=== PATIENT | female | born 1990 | race American Indian/Alaskan Native ===

== ENCOUNTER 2016-11-21 15:51 | Emergency (ER) | payer SELFPAY ==
[2016-11-21 16:28] VITALS: BP 127/82
[2016-11-21] MEDS ORDERED: DECADRON IM ONE (18:37)
--- NOTE | 2016-11-21 18:41 | Emergency Department Report ---
ED Rash HPI - [facility] Chief Complaint: Skin Rash Stated Complaint: RASH ON CHEST AREA Time Seen by Provider: 11/21/16 18:36 Duration: 3 Days Location: Chest, Back, Other (under breats) Suspected Cause: Unknown Rash Symptoms: Yes Itching, No Facial Swelling, No Tongue/Oral Swelling, No Breathing Difficulties, No Choking Sensation, No Wheezing/Dyspnea, No Peeling, No Blistering, No Fever Severity: mild ED Review of Systems ROS: Stated complaint: RASH ON CHEST AREA Other details as noted in HPI ED Past Medical Hx - Past Medical History Previous Medical History?: No - Surgical History Past Surgical History?: Yes Additional Surgical History: c section 2006 - Social History Smoking Status: Current Every Day Smoker Substance Use Type: None - Medications Home Medications: Home Medications Medication Instructions Recorded Confirmed Last Taken Type methylPREDNISolone [Medrol] 4 mg PO DAILY #1 tab.ds.pk 11/21/16 Unknown Rx Rash Exam - Exam General: Vital signs noted. No distress. Alert and acting appropriately. HEENT: No Periorbital Edema, No Conjuctival Injection, No Chemosis, No Perioral Edema, No Tongue Edema, No Uvular Edema, No Compromised Airway, No Drooling Lungs: Yes Good Air Exchange, No Wheezes, No Ronchi, No Stridor, No Cough, No Labored Respirations, No Retractions, No Use of Accessory Muscles, No Other Abnormal Lung Sounds Heart: Yes Regular, No Murmur Skin: Yes Urticarial Rash (irritant appearing as like a heat rash would cause. started under breasts. on chest and back. no fever. no other s/s. no family with. she thinks it might be her detergent. she also says home is hot. and she is requesting a work note. vss. nad), Yes Erythema, No Maculopapular Rash, No Morbilliform rash, No Bulla(e), No Excoriations, No Weeping, No Tenderness, No Edema, No Encrustations Other: Positive: Abdomen Normal ED Course Vital Signs 11/21/16 16:24 Temperature 98.7 F Pulse Rate 82 Respiratory 16 Rate Blood Pressure 127/82 Blood Pressure 127/82 [Left] O2 Sat by Pulse 100 Oximetry - Reevaluation(s) Reevaluation #1: 11/21/16 18:41 medicated vss abc intact no wheezing no sob no cp simple rash dc home w outpt poc Critical care attestation.: If time is entered above; I have spent that time in minutes in the direct care of this critically ill patient, excluding procedure time. ED Disposition Clinical Impression: Rash Disposition: DC-01 TO HOME OR SELFCARE Is pt being admited?: No Does the pt Need Aspirin: No Condition: Stable Instructions: Acute Rash (ED) Additional Instructions: keep cool no new products evaluate your home products to eliminate source of irritant benadyl over the counter orally for itching follow up PCP or derm if persists. Referrals: PRIMARY CARE, [Primary Care Provider] - 3-5 Days REYNA SCOTT MD [Referring] - 3-5 Days FLACO ESTRELLA MD [Staff Physician] - 3-5 Days FELICIA HAMMOND MD [Staff Physician] - 3-5 Days Forms: Work/School Release Form(ED) Time of Disposition: 18:40
== END 2016-11-21 18:57 | disposition home or self-care (01) ==
LOC: ED 15:51
DX: R21 Rash and other nonspecific skin eruption (principal); F17.200 Nicotine dependence, unspecified, uncomplicated
CPT/HCPCS: 96372; 99281; J1100

== ENCOUNTER 2017-04-04 20:10 | Emergency (ER) | payer OTHER ==
[2017-04-04 20:51] VITALS: BP 131/93
[2017-04-04] MEDS ORDERED: TETRACAINE 0.5% OU PRN (21:09)
[2017-04-04] MEDS ORDERED: FUL-GLO OP ONE (21:09)
--- NOTE | 2017-04-04 22:17 | Emergency Department Report ---
ED Eye Problem HPI - General Chief complaint: Eye Problems Stated complaint: EYE PAIN Time Seen by Provider: 04/04/17 21:09 Source: patient Mode of arrival: Ambulatory Limitations: No Limitations - History of Present Illness Initial comments: This is a 26-year-old female nontoxic, well nourished in appearance, no acute signs of distress presents to the ED with c/o of right eye pain, redness, and drainage x2 days. She believes got something in her eye and rubbed her eye. Patient denies any visual changes, headache, nausea, vomiting fever, chills, chest pain, shortness of breath, numbness or tingling. Denies any allergies or past medical history. chief complaint: eye pain, eye redness -: days(s) (2) Onset Description: gradual Location: right eye Place: home If Injury: none Eye Symptoms: burning, redness, itching, discharge Severity: mild Severity scale (0 -10): 8 If Pain, Quality: burning, aching Consistency: constant Associated Symptoms: none. denies: headache, neck pain, nausea/vomiting, cough , rhinorrhea, fever, shortness of breath Treatments Prior to Arrival: none - Related Data Previous Rx's Medication Instructions Recorded Last Taken Type methylPREDNISolone [Medrol] 4 mg PO DAILY #1 tab.ds.pk 11/21/16 Unknown Rx Ciprofloxacin 0.3% (Nf) 2 drops OD BID 5 Days drops 04/04/17 Unknown Rx [Ciprofloxacin OPTH] Allergies Allergy/AdvReac Type Severity Reaction Status Date / Time No Known Allergies Allergy Unverified 11/21/16 16:28 ED Review of Systems ROS: Stated complaint: EYE PAIN Other details as noted in HPI Constitutional: denies: chills, fever Eyes: eye pain, eye discharge. denies: vision change ENT: denies: ear pain, throat pain Respiratory: denies: cough, shortness of breath, wheezing Cardiovascular: denies: chest pain, palpitations Endocrine: no symptoms reported Gastrointestinal: denies: abdominal pain, nausea, diarrhea Genitourinary: denies: urgency, dysuria, discharge Musculoskeletal: denies: back pain, joint swelling, arthralgia Skin: denies: rash, lesions Neurological: denies: headache, weakness, paresthesias Psychiatric: denies: anxiety, depression Hematological/Lymphatic: denies: easy bleeding, easy bruising ED Past Medical Hx - Past Medical History Previous Medical History?: No - Surgical History Past Surgical History?: No Additional Surgical History: c section 2007 - Social History Smoking Status: Current Every Day Smoker Substance Use Type: None - Medications Home Medications: Home Medications Medication Instructions Recorded Confirmed Last Taken Type methylPREDNISolone [Medrol] 4 mg PO DAILY #1 tab.ds.pk 11/21/16 Unknown Rx Ciprofloxacin 0.3% (Nf) 2 drops OD BID 5 Days drops 04/04/17 Unknown Rx [Ciprofloxacin OPTH] ED Physical Exam - General Limitations: No Limitations General appearance: alert, in no apparent distress - Head Head exam: Present: atraumatic, normocephalic - Eye Eye exam: Present: normal appearance, PERRL, EOMI. Absent: scleral icterus, conjunctival injection, nystagmus, periorbital swelling, periorbital tenderness Pupils: Present: normal accommodation - Expanded Eye Exam Expanded Eyelids: Normal Inspection: Right Pupils: Regular, Round: Right, Reactive: Right Sclera/Conjunctival: Normal Inspection: Right (with erythema, watery) Anterior chamber: Normal Inspection: Right Visual acuity (R) = 20/: 20 Visual acuity (L) = 20/: 40 With correction: No IOP (R) in mmH IOP measured with: Tonopen - ENT ENT exam: Present: normal exam, normal orophraynx, mucous membranes moist, TM's normal bilaterally, normal external ear exam - Neck Neck exam: Present: normal inspection, full ROM. Absent: tenderness, meningismus, lymphadenopathy, thyromegaly - Respiratory Respiratory exam: Present: normal lung sounds bilaterally. Absent: respiratory distress, wheezes, rales, rhonchi, stridor, chest wall tenderness, accessory muscle use, decreased breath sounds, prolonged expiratory - Cardiovascular Cardiovascular Exam: Present: regular rate, normal rhythm, normal heart sounds. Absent: irregular rhythm, systolic murmur, diastolic murmur, rubs, gallop - GI/Abdominal GI/Abdominal exam: Present: soft, normal bowel sounds. Absent: distended, tenderness, guarding, rebound, rigid, diminished bowel sounds - Rectal Rectal exam: Present: deferred - Extremities Exam Extremities exam: Present: normal inspection, full ROM, normal capillary refill. Absent: tenderness, pedal edema, joint swelling, calf tenderness - Back Exam Back exam: Present: normal inspection, full ROM. Absent: tenderness, CVA tenderness (R), CVA tenderness (L), muscle spasm, paraspinal tenderness, vertebral tenderness, rash noted - Neurological Exam Neurological exam: Present: alert, oriented X3, CN II-XII intact, normal gait, reflexes normal - Psychiatric Psychiatric exam: Present: normal affect, normal mood - Skin Skin exam: Present: warm, dry, intact, normal color. Absent: rash - Other Other exam information: Under Lynch lamp, I used fluorescein and tetracaine to examine cornea for corneal abrasion or foreign body. There is a 0.5 cm ulcer to the lateral right iris. Not covering the pupil. ED Course Vital Signs 04/04/17 20:48 Temperature 99 F Pulse Rate 98 H Respiratory 18 Rate Blood Pressure 131/93 O2 Sat by Pulse 100 Oximetry - Reevaluation(s) Reevaluation #1: 04/04/17 22:20 Patient is speaking in full sentences with no signs of distress noted. - Consultations Consultation #1: 04/04/17 22:20 Dr. Walls also has been consulted on patient history, physical exam and assessment patient himself and agrees to plan of care discharged with follow-up with ophthalmology in 24 hours. ED Medical Decision Making - Medical Decision Making This is a 26-year-old female that presents with right corneal ulcer. Patient is stable and was examined by me. Socrates Wills. Lynch lamp has been perform. Dr. Walls has exam patient and agrees to plan of care discharge. Patient received ciprofloxacin optic drops at discharge. Patient was instructed Follow- up with a ophthalmology in 24 hours or if symptoms worsen and continue return to emergency room as soon as possible. At time time of discharge, the patient does not seem toxic or ill in appearance. No acute signs of distress noted. Patient agrees to discharge treatment plan of care. No further questions noted by the patient. Critical care attestation.: If time is entered above; I have spent that time in minutes in the direct care of this critically ill patient, excluding procedure time. ED Disposition Clinical Impression: Corneal ulcer of right eye Disposition: DC-01 TO HOME OR SELFCARE Is pt being admited?: No Does the pt Need Aspirin: No Condition: Stable Instructions: Corneal Ulcer (ED), Ciprofloxacin (Into the eye) Additional Instructions: Follow-up with a ophthalmology in 24 hours or if symptoms worsen and continue return to emergency room as soon as possible. Prescriptions: Ciprofloxacin 0.3% (Nf) [Ciprofloxacin OPTH] 2 drops OD BID 5 Days drops Referrals: PRIMARY CARE, [Primary Care Provider] - 3-5 Days [facility]Note 3] [Outside] - 3-5 Days [facility] [Outside] - 3-5 Days KISHAN LAWRENCE MD [Staff Physician] - 24 Hours ALONDRA HERNANDEZ MD [Staff Physician] - 24 Hours Forms: Work/School Release Form(ED)
== END 2017-04-04 22:40 | disposition home or self-care (01) ==
LOC: ED 20:10
DX: H16.001 Unspecified corneal ulcer, right eye (principal); F17.200 Nicotine dependence, unspecified, uncomplicated
CPT/HCPCS: 99283

== ENCOUNTER 2017-12-29 07:50 | Emergency (ER) | payer SELFPAY ==
[2017-12-29 07:56] VITALS: BP 121/84
[2017-12-29] MEDS ORDERED: MOTRIN PO ONE (08:29)
[2017-12-29] MEDS ORDERED: LIDOCAINE VISCOUS 2% PO ONE (08:29)
--- NOTE | 2017-12-29 08:36 | Emergency Department Report ---
ED ENT HPI - General Chief complaint: Sore Throat Stated complaint: THROAT SORE POSS FEVER Time Seen by Provider: 12/29/17 08:23 Source: patient Mode of arrival: Ambulatory Limitations: No Limitations - History of Present Illness Initial comments: This is a 27-year-old female nontoxic, well nourished in appearance, no acute signs of distress presents to the ED with c/o of sore throat. Patient describes sore throat as swallowing razer blades. Patient denies any fever, chills, headache, stiff neck, nausea, vomiting, chest pain, shortness of breath, numbness or tingling. Patient denies any drooling or hoarseness. Patient denies any allergies or significant past medical history. MD complaint: sore throat -: days(s) (2) Location: throat Severity: mild Severity scale (0 -10): 8 Quality: aching Consistency: constant Improves with: none Worsens with: swallowing Associated Symptoms: pain with swallowing, sore throat. denies: fever, cough, gum swelling, toothache, tinnitus, hearing loss, discharge from ear, rhinorrhea - Related Data Previous Rx's Medication Instructions Recorded Last Taken Type methylPREDNISolone [Medrol] 4 mg PO DAILY #1 tab.ds.pk 11/21/16 Unknown Rx Ciprofloxacin 0.3% (Nf) 2 drops OD BID 5 Days drops 04/04/17 Unknown Rx [Ciprofloxacin OPTH] Amoxicillin/K Clav Tab [Augmentin 1 tab PO Q12HR #20 tab 12/29/17 Unknown Rx 875 mg] Ibuprofen [Motrin] 600 mg PO Q8H PRN #30 tablet 12/29/17 Unknown Rx Nystas/Diphen/Xyl Visc/Mylanta 15 ml MM Q6H PRN 5 Days ml 12/29/17 Unknown Rx [Magic Mouthwash] Allergies Allergy/AdvReac Type Severity Reaction Status Date / Time No Known Allergies Allergy Verified 12/29/17 07:54 ED Dental HPI - General Chief complaint: Sore Throat Stated complaint: THROAT SORE POSS FEVER Time Seen by Provider: 12/29/17 08:23 Source: patient Mode of arrival: Ambulatory Limitations: No Limitations - Related Data Previous Rx's Medication Instructions Recorded Last Taken Type methylPREDNISolone [Medrol] 4 mg PO DAILY #1 tab.ds.pk 11/21/16 Unknown Rx Ciprofloxacin 0.3% (Nf) 2 drops OD BID 5 Days drops 04/04/17 Unknown Rx [Ciprofloxacin OPTH] Amoxicillin/K Clav Tab [Augmentin 1 tab PO Q12HR #20 tab 12/29/17 Unknown Rx 875 mg] Ibuprofen [Motrin] 600 mg PO Q8H PRN #30 tablet 12/29/17 Unknown Rx Nystas/Diphen/Xyl Visc/Mylanta 15 ml MM Q6H PRN 5 Days ml 12/29/17 Unknown Rx [Magic Mouthwash] Allergies Allergy/AdvReac Type Severity Reaction Status Date / Time No Known Allergies Allergy Verified 12/29/17 07:54 ED Review of Systems ROS: Stated complaint: THROAT SORE POSS FEVER Other details as noted in HPI Constitutional: denies: chills, fever Eyes: denies: eye pain, eye discharge, vision change ENT: throat pain. denies: ear pain Respiratory: denies: cough, shortness of breath, wheezing Cardiovascular: denies: chest pain, palpitations Endocrine: no symptoms reported Gastrointestinal: denies: abdominal pain, nausea, diarrhea Genitourinary: denies: urgency, dysuria, discharge Musculoskeletal: denies: back pain, joint swelling, arthralgia Skin: denies: rash, lesions Neurological: denies: headache, weakness, paresthesias Psychiatric: denies: anxiety, depression Hematological/Lymphatic: denies: easy bleeding, easy bruising ED Past Medical Hx - Past Medical History Previous Medical History?: No - Surgical History Additional Surgical History: c section 2007 - Social History Smoking Status: Current Every Day Smoker Substance Use Type: None - Medications Home Medications: Home Medications Medication Instructions Recorded Confirmed Last Taken Type methylPREDNISolone [Medrol] 4 mg PO DAILY #1 tab.ds.pk 11/21/16 Unknown Rx Ciprofloxacin 0.3% (Nf) 2 drops OD BID 5 Days drops 04/04/17 Unknown Rx [Ciprofloxacin OPTH] Amoxicillin/K Clav Tab [Augmentin 1 tab PO Q12HR #20 tab 12/29/17 Unknown Rx 875 mg] Ibuprofen [Motrin] 600 mg PO Q8H PRN #30 tablet 12/29/17 Unknown Rx Nystas/Diphen/Xyl Visc/Mylanta 15 ml MM Q6H PRN 5 Days ml 12/29/17 Unknown Rx [Magic Mouthwash] ED Physical Exam - General Limitations: No Limitations General appearance: alert, in no apparent distress - Head Head exam: Present: atraumatic, normocephalic - Eye Eye exam: Present: normal appearance Pupils: Present: normal accommodation - ENT ENT exam: Present: mucous membranes moist, TM's normal bilaterally, normal external ear exam - Expanded ENT Exam Expanded Ear exam: Present: normal external inspection Mouth exam: Present: normal external inspection, tongue normal. Absent: drooling, trismus, muffled voice, tongue elevation, laceration Teeth exam: Present: normal inspection Throat exam: Positive: tonsillar erythema, tonsillomegaly (2+), tonsillar exudate, other (no tonsillar swelling or abscess). Negative: R peritonsillar mass, L peritonsillar mass - Neck Neck exam: Present: normal inspection, full ROM. Absent: tenderness, meningismus, lymphadenopathy - Respiratory Respiratory exam: Present: normal lung sounds bilaterally. Absent: respiratory distress, wheezes, rales, rhonchi, stridor, chest wall tenderness, accessory muscle use, decreased breath sounds, prolonged expiratory - Cardiovascular Cardiovascular Exam: Present: regular rate, normal rhythm, normal heart sounds. Absent: bradycardia, tachycardia, irregular rhythm, systolic murmur, diastolic murmur, rubs, gallop - GI/Abdominal GI/Abdominal exam: Present: soft, normal bowel sounds - Rectal Rectal exam: Present: deferred - Extremities Exam Extremities exam: Present: normal inspection, full ROM, normal capillary refill - Back Exam Back exam: Present: normal inspection, full ROM - Neurological Exam Neurological exam: Present: alert, oriented X3, normal gait - Psychiatric Psychiatric exam: Present: normal affect, normal mood - Skin Skin exam: Present: warm, dry, intact, normal color. Absent: rash ED Course Vital Signs 12/29/17 07:54 Temperature 98.6 F Pulse Rate 90 Respiratory 18 Rate Blood Pressure 121/84 O2 Sat by Pulse 98 Oximetry - Reevaluation(s) Reevaluation #1: 12/29/17 08:34 Patient is speaking in full sentences with no signs of distress noted. Critical care attestation.: If time is entered above; I have spent that time in minutes in the direct care of this critically ill patient, excluding procedure time. ED Disposition Clinical Impression: Tonsillitis with exudate Disposition: - TO HOME OR SELFCARE Is pt being admited?: No Does the pt Need Aspirin: No Condition: Stable Instructions: Tonsillitis (ED) Additional Instructions: Follow-up with a primary care doctor in 3-5 days or if symptoms worsen and continue return to emergency room as soon as possible. Prescriptions: Amoxicillin/K Clav Tab [Augmentin 875 mg] 1 tab PO Q12HR #20 tab Ibuprofen [Motrin] 600 mg PO Q8H PRN #30 tablet PRN Reason: Pain Nystas/Diphen/Xyl Visc/Mylanta [Magic Mouthwash] 15 ml MM Q6H PRN 5 Days ml PRN Reason: Sore Throat Referrals: PRIMARY CAREMD [Primary Care Provider] - 3-5 Days PALOMO HSIEH MD [Staff Physician] - 3-5 Days [facility] [Outside] - 3-5 Days Forms: Work/School Release Form(ED)
[2017-12-29] MEDS ORDERED: NACL 0.9% 1000 ML 1,000 ML ONE (08:53)
== END 2017-12-29 08:45 | disposition home or self-care (01) ==
LOC: ED 07:50
DX: J03.90 Acute tonsillitis, unspecified (principal); F17.200 Nicotine dependence, unspecified, uncomplicated
CPT/HCPCS: 99282; J7030

== ENCOUNTER 2019-04-07 06:09 | Inpatient (IN) | payer MEDICAID ==
[2019-04-07] MEDS ORDERED: LACTATED RINGERS 2,000 ML ONE (07:24)
[2019-04-07 07:35] LABS: Hematocrit 37.6 % (30.3-42.9); Hemoglobin 12.6 gm/dl (10.1-14.3); Mean Corpuscular HGB Conc 33 % (30-34); Mean Corpuscular Volume 73 fl (79-97); Platelet Count 304 K/mm3 (140-440); Red Blood Count 5.13 M/mm3 (3.65-5.03); Red Cell Distribution Width 15.4 % (13.2-15.2)
[2019-04-07 07:39] LABS: Bilirubin,Urine NEG (Negative); Blood,Urine NEG (Negative); Color,Urine Straw (Yellow); Protein,Urine <15 mg/dL mg/dL (Negative); Urobilinogen,Urine < 2.0 mg/dL (<2.0); WBC,Urine < 1.0 /HPF (0.0-6.0)
[2019-04-07 07:46] LABS: Amphetamine Screen,Urine PRESUMPTIVE NEGATIVE; Benzodiazepines Screen,Urine PRESUMPTIVE NEGATIVE; Cannabinoid Screen,Urine PRESUMPTIVE NEGATIVE; Cocaine Screen,Urine PRESUMPTIVE NEGATIVE; Methadone Screen,Urine PRESUMPTIVE NEGATIVE; Opiate Screen,Urine PRESUMPTIVE NEGATIVE
--- NOTE | 2019-04-07 07:54 | History and Physical Report ---
History of Present Illness Date of examination: 04/07/19 Chief complaint: contraction, elevated BP's, uncertain [facility], no records. Attempting to obtain records but no return call for [facility] where she states she had her first US or Dr. Roper where she states she received [facility]. Past History Past Medical History: no pertinent history Past Surgical History: section [employer] History: denies: chlamydia, gonorrhea, hepatitis B, hepatitis C, herpes, HIV, syphilis Social history: smoking - Obstetrical History : 2 Medications and Allergies Allergies Allergy/AdvReac Type Severity Reaction Status Date / Time No Known Allergies Allergy Verified 06/12/18 09:55 Home Medications Medication Instructions Recorded Confirmed Last Taken Type methylPREDNISolone [Medrol] 4 mg PO DAILY #1 tab.ds.pk 11/21/16 Unknown Rx Ciprofloxacin 0.3% (Nf) 2 drops OD BID 5 Days drops 04/04/17 Unknown Rx [Ciprofloxacin OPTH] Amoxicillin/K Clav Tab [Augmentin 1 tab PO Q12HR #20 tab 12/29/17 Unknown Rx 875 mg] Nystas/Diphen/Xyl Visc/Mylanta 15 ml MM Q6H PRN 5 Days ml 12/29/17 Unknown Rx [Magic Mouthwash] Amoxicillin [Amoxicillin TAB] 875 mg PO BID #20 tablet 06/12/18 Unknown Rx Ibuprofen [Motrin 600 MG tab] 600 mg PO Q8H PRN #30 tablet 06/12/18 Unknown Rx predniSONE [Deltasone] 20 mg PO BID #10 tab 06/12/18 Unknown Rx Review of Systems All systems: negative Genitourinary: contractions - Vital Signs Vital signs: Vital Signs Pulse Pulse Ox 88 100 04/07/19 06:29 04/07/19 06:29 Temp Pulse Resp BP Pulse Ox 98.1 F 90 138/83 100 04/07/19 06:43 04/07/19 07:44 04/07/19 07:38 04/07/19 07:44 - Physical Exam Breasts: Positive: deferred Cardiovascular: Regular rate Lungs: Positive: Clear to auscultation, Normal air movement Abdomen: Positive: soft. Negative: tenderness Uterus: Positive: enlarged. Negative: tender Extremities: Positive: normal. Negative: tenderness, edema Deep Tendon Reflex Grade: Normal +2 - Obstetrical FHR: category 1 Uterine Contraction Monitor Mode: External Cervical Dilatation: 2 (per RN) Uterine Contraction Pattern: Irregular Results Result Diagrams: 04/07/19 07:20 04/07/19 07:20 Abnormal lab results 04/07/19 Range/Units 07:20 WBC 12.7 H (4.5-11.0) K/mm3 RBC 5.13 H (3.65-5.03) M/mm3 MCV 73 L (79-97) fl MCH 25 L (28-32) pg RDW 15.4 H (13.2-15.2) % All other labs normal. Ultrasound: report reviewed Assessment and Plan - Patient Problems (1) Elevated blood pressure complicating in third trimester, antepartum Current Visit: Yes Status: Acute (2) No care in current Current Visit: Yes Status: Acute Plan to address problem: Actually possible PNC however no records available at this at and patient is uncertain of [facility], where her first US was performed, plan for care(except she wants a repeat c/s). Stat US here reveals EGA ~30-31weeks, which places her at or IUGR. One dosse terb given, MagSO4 started, will proceed with BMZ, BP control and continue attempt to clarify [facility]. (3) Smoker Current Visit: Yes Status: Acute
[2019-04-07 07:55] LABS: Alanine Aminotransferase 12 units/L (7-56); Uric Acid 5.7 mg/dL (3.5-7.6)
[2019-04-07] MEDS ORDERED: OXYTOCIN 20 UNIT/1000ML DRIP 20 UNITS/1,000 ML BAG IV SCH (08:00)
[2019-04-07] MEDS ORDERED: LACTATED RINGERS 1,000 ML IV SCH ×2 (08:00→09:00)
[2019-04-07] MEDS ORDERED: ceFAZolin/Water 2 GM/20 ML 2 GM/20 ML SYRINGE IV NR (08:00)
--- NOTE | 2019-04-07 08:23 | Ultrasound Report ---
OB ULTRASOUND >= 14 WEEKS FETUS INDICATION: EFW, EGA COMPARISON: None FINDINGS: A single gestation intrauterine is present with cephalic presentation. The placenta is fund al, left lateral, grade 2 and free of the cervical os. heart tones measure 115 bpm. Amniotic fluid volume is normal with a fluid index of 8.0. anatomical survey was not performed. Estimated age on ultrasound is 30 weeks 6 days. EDC 06/10/2019. Estimated weight 1658 g +/- 2 48 g IMPRESSION: Viable . Signer Name: Femi Govea Jr, MD Signed: 04/07/2019 8:19 AM Workstation Name: [id number]
[2019-04-07] MEDS ORDERED: TERBUTALINE 1 MG/1 ML INJ SUB-Q ONE (09:00)
[2019-04-07] MEDS ORDERED: BETAMET ACET/BETAMET NA PH 6 MG/ML INJ 5 ML MDV IM SCH (09:00)
[2019-04-07] MEDS ORDERED: BICITRA ORAL LIQD 30ML PO NR (09:00)
[2019-04-07] MEDS ORDERED: hydrALAZINE 20 MG/1 ML INJ IV NR (09:00)
[2019-04-07] MEDS ORDERED: FAMOTIDINE 20 MG/2 ML INJ IV NR (09:00)
[2019-04-07] MEDS ORDERED: hydrALAZINE 20 MG/1 ML INJ IV ONE (09:00)
[2019-04-07] MEDS ORDERED: METOCLOPRAMIDE 10 MG/2 ML INJ IV NR (09:00)
[2019-04-07] MEDS ORDERED: MAGNESIUM SULFATE 4 GM/100 ML BAG IV ONE ×2 (09:00→13:01)
[2019-04-07] MEDS ORDERED: MAGNESIUM SULFATE 40GM/1000ML 40 GM/1,000 ML BAG IV SCH ×2 (09:30→17:00)
--- NOTE | 2019-04-07 09:46 | Progress Note ---
Assessment and Plan - Patient Problems (1) Elevated blood pressure complicating in third trimester, antepartum Current Visit: Yes Status: Acute (2) No care in current Current Visit: Yes Status: Acute (3) 36 weeks gestation of Current Visit: Yes Status: Acute Plan to address problem: US reports from [facility] received, FRANSICO 05/03/2019 EGA 36 week. Gestational HTN severe features, IUGR and active labor in a patient with previous c/s and desires repeat c/s, will proceed with delivery. Questions encouraged and answered, consents reviewed and signed. She voiced understanding and desires to proceed with c/s. (4) Maternal care due to uterine scar from other previous surgery Current Visit: Yes Status: Acute Subjective - Subjective Date of service: 04/07/19 Patient reports: contractions Objective - Vital Signs Vital Signs: Vital Signs - 12hr 04/07/19 04/07/19 04/07/19 06:29 06:34 06:39 Temperature Pulse Rate 88 83 85 Blood Pressure 149/99 O2 Sat by Pulse 100 100 81 L Oximetry 04/07/19 04/07/19 04/07/19 06:43 06:44 06:49 Temperature 98.1 F Pulse Rate 84 85 Blood Pressure O2 Sat by Pulse 93 99 Oximetry 04/07/19 04/07/19 04/07/19 06:54 06:55 06:59 Temperature Pulse Rate 100 H 83 91 H Blood Pressure 161/119 O2 Sat by Pulse 100 100 Oximetry 04/07/19 04/07/19 04/07/19 07:04 07:08 07:09 Temperature Pulse Rate 94 H 94 H 92 H Blood Pressure O2 Sat by Pulse 98 94 96 Oximetry 04/07/19 04/07/19 04/07/19 07:10 07:14 07:19 Temperature Pulse Rate 100 H 85 93 H Blood Pressure 148/101 O2 Sat by Pulse 98 99 Oximetry 04/07/19 04/07/19 04/07/19 07:23 07:24 07:29 Temperature Pulse Rate 85 83 78 Blood Pressure 127/79 O2 Sat by Pulse 94 94 Oximetry 04/07/19 04/07/19 04/07/19 07:34 07:38 07:44 Temperature Pulse Rate 85 87 90 Blood Pressure 138/83 O2 Sat by Pulse 97 98 100 Oximetry 04/07/19 04/07/19 04/07/19 07:48 07:54 07:55 Temperature Pulse Rate 92 H 100 H 87 Blood Pressure O2 Sat by Pulse 100 97 89 Oximetry 04/07/19 04/07/19 04/07/19 08:00 08:03 08:05 Temperature Pulse Rate 90 87 82 Blood Pressure O2 Sat by Pulse 85 86 100 Oximetry 04/07/19 04/07/19 04/07/19 08:19 08:23 08:47 Temperature Pulse Rate 89 90 103 H Blood Pressure 161/110 151/104 162/98 O2 Sat by Pulse Oximetry 04/07/19 09:26 Temperature Pulse Rate 107 H Blood Pressure 136/73 O2 Sat by Pulse Oximetry - Labs Labs: Abnormal Labs 04/07/19 04/07/19 07:20 07:20 WBC 12.7 H RBC 5.13 H MCV 73 L MCH 25 L RDW 15.4 H Creatinine 0.5 L Lactate Dehydrogenase 269 H Laboratory Results - last 24 hr 04/07/19 04/07/19 04/07/19 07:20 07:20 07:20 WBC RBC Hgb Hct MCV MCH MCHC RDW Plt Count Creatinine Estimated GFR Uric Acid AST ALT Lactate Dehydrogenase Urine Color Straw Urine Turbidity Clear Urine pH 7.0 Ur Specific [place] 1.009 Urine Protein <15 mg/dl Urine Glucose (UA) Neg Urine Ketones Neg Urine Blood Neg Urine Nitrite Neg Urine Bilirubin Neg Urine Urobilinogen < 2.0 Ur Leukocyte Esterase Neg Urine WBC (Auto) < 1.0 Urine RBC (Auto) 1.0 U Epithel Cells (Auto) < 1.0 Urine Opiates Screen Presumptive negative Urine Methadone Screen Presumptive negative Ur Barbiturates Screen Presumptive negative Ur Phencyclidine Scrn Presumptive negative Ur Amphetamines Screen Presumptive negative U Benzodiazepines Scrn Presumptive negative Urine Cocaine Screen Presumptive negative U Marijuana (THC) Screen Presumptive negative Drugs of Abuse Note Disclamer Blood Type A POSITIVE Antibody Screen Negative 04/07/19 04/07/19 07:20 07:20 WBC 12.7 H RBC 5.13 H Hgb 12.6 Hct 37.6 MCV 73 L MCH 25 L MCHC 33 RDW 15.4 H Plt Count 304 Creatinine 0.5 L Estimated GFR > 60 Uric Acid 5.7 AST 27 ALT 12 Lactate Dehydrogenase 269 H Urine Color Urine Turbidity Urine pH Ur Specific [place] Urine Protein Urine Glucose (UA) Urine Ketones Urine Blood Urine Nitrite Urine Bilirubin Urine Urobilinogen Ur Leukocyte Esterase Urine WBC (Auto) Urine RBC (Auto) U Epithel Cells (Auto) Urine Opiates Screen Urine Methadone Screen Ur Barbiturates Screen Ur Phencyclidine Scrn Ur Amphetamines Screen U Benzodiazepines Scrn Urine Cocaine Screen U Marijuana (THC) Screen Drugs of Abuse Note Blood Type Antibody Screen
[2019-04-07 10:24] LABS: Amphetamine Screen,Urine PRESUMPTIVE NEGATIVE; Benzodiazepines Screen,Urine PRESUMPTIVE NEGATIVE; Cannabinoid Screen,Urine PRESUMPTIVE NEGATIVE; Cocaine Screen,Urine PRESUMPTIVE NEGATIVE; Methadone Screen,Urine PRESUMPTIVE NEGATIVE; Opiate Screen,Urine PRESUMPTIVE NEGATIVE
--- NOTE | 2019-04-07 10:52 | Consultation ---
Consult Note - Parent Education I met with parent(s) and discussed the following:: Need for NICU admission, Poss ible need for intubation and surfactant or other resp support, Temperature regulation, Possible need for IV fluids/TPN and IV antibiotics, Possible need for umbilical lines, Importance of providing breast milk & encouraged pumping aft delivery, Donor breast milk if baby meets criteria after , Slow feeding advancement and monitoring of tolerance. NG/OG feeds, Need to monitor for jaundice, Data for survival & survival without significant co-morbidities Parent(s) demonstrated understanding of all the information:: Yes Assessment and Plan - Assessment Gestation:: 36 Estimated Weight: N/A Baby's gender: Male Baby's name: Sea Additional Comment: Per [facility]'s record, infant is estimated to be 36 weeker, IUGR, FRANSICO 05/03/2019. Mother has gestational HTN and is a smoker. Limited PNC. - Plan Plan: Will attend delivery Please call NICU with questions
[2019-04-07] MEDS ORDERED: SODIUM CHLORIDE 0.9% IRR 1,500 ML BOTTLE IR ONE (11:40)
[2019-04-07] MEDS ORDERED: WATER FOR IRRIG STERILE 1,500 ML BOTTLE IR ONE (11:40)
[2019-04-07] MEDS ORDERED: DEXMEDETOMIDINE 200 MCG/2 ML VIAL IV ONE (11:45)
[2019-04-07] MEDS ORDERED: PHENYLEPHRINE 10 MG/1 ML INJ SDV ONE (11:45)
[2019-04-07] MEDS ORDERED: OXYTOCIN 10 UNIT/1 ML INJ ONE (11:51)
[2019-04-07] MEDS ORDERED: MAGNESIUM HYDROXIDE (MOM) ORAL LIQD UDC PO PRN (12:37)
[2019-04-07] MEDS ORDERED: LANOLIN/ZINC/DIMETHICONE (LANSINOH) 7 GM TP PRN (12:37)
[2019-04-07] MEDS ORDERED: ONDANSETRON 4 MG/2 ML INJ IV PRN ×2 (12:37→12:49)
[2019-04-07] MEDS ORDERED: IBUPROFEN 800 MG TAB PO PRN (12:37)
[2019-04-07] MEDS ORDERED: SIMETHICONE 80 MG CHEW TAB PO PRN (12:37)
[2019-04-07] MEDS ORDERED: NALOXONE 0.4 MG/1 ML INJ IV PRN (12:37)
[2019-04-07] MEDS ORDERED: FLU VACC QUAD 2019-20 (3 YR UP)/PF 60 MCG/0.5 ML SYRINGE IM ONE (12:37)
[2019-04-07] MEDS ORDERED: WITCH HAZEL/ GLYCERIN PAD TP PRN (12:37)
[2019-04-07] MEDS ORDERED: MORPHINE 4 MG/1 ML INJ IV PRN (12:37)
[2019-04-07] MEDS ORDERED: MORPHINE 2 MG/1 ML INJ IV PRN (12:37)
[2019-04-07] MEDS ORDERED: KETOROLAC 30 MG/1 ML INJ ONE ×2 (12:41→15:28)
[2019-04-07] MEDS ORDERED: HYDROmorphone 1 MG/1 ML INJ IV PRN (12:49)
--- NOTE | 2019-04-07 12:53 | Anesthesia Consultation ---
Anesthesia Consult and Med Hx Date of service: 04/07/19 - Airway Anesthetic Teeth Evaluation: Poor ROM Head & Neck: Adequate Mental/Hyoid Distance: Adequate Mallampati Class: Class III Intubation Access Assessment: Probably Good - Pulmonary Exam CTA: Yes - Cardiac Exam Cardiac Exam: RRR - Pre-Operative Health Status ASA Pre-Surgery Classification: ASA3 Proposed Anesthetic Plan: Spinal - Pulmonary Hx Smoking: Yes (1pk/day) Hx Asthma: No Hx Respiratory Symptoms: No SOB: No COPD: No Home Oxygen Therapy: No Hx Pneumonia: No Hx Sleep Apnea: No - Cardiovascular System Hx Hypertension: Yes (gestational HTN) Hx Coronary Artery Disease: No Hx Heart Attack/AMI: No Hx Angina: No Hx Percutaneous Transluminal Coronary Angioplasty (PTCA): No Hx Cardia Arrhythmia: No Hx Pacemaker: No Hx Internal Defibrillator: No Hx Valvular Heart Disease: No Hx Heart Murmur: No Hx Peripheral Vascular Disease: No - Central Nervous System Hx Neuromuscular Disorder: No Hx Seizures: No CVA: No Hx Back Pain: Yes Hx Psychiatric Problems: No - Gastrointestinal Hx Ulcer: No Hx Gastroesophageal Reflux Disease: No - Endocrine Hx Renal Disease: No Hx End Stage Renal Disease: No Hx Cirrhosis: No Hx Liver Disease: No Hx Insulin Dependent Diabetes: No Hx Non-Insulin Dependent Diabetes: No Hx Thyroid Disease: No Hx Hypothyroidism: No Hx Hyperthyroidism: No - Hematic Hx Anemia: Yes Hx Sickle Cell Disease: No - Other Systems Hx Alcohol Use: No Hx Substance Use: No Hx Cancer: No Hx Obesity: Yes (bmi 33.2)
--- NOTE | 2019-04-07 12:54 | Anesthesia Day of Surgery ---
Anesthesia Day of Surgery - Day of Surgery Patient Examined: Yes Patient H&P Reviewed: Yes Patient is NPO: Yes Beta Blockers: No Cardiac Clearance: No Pulmonary Clearance: No Hayden's Test: N/A
--- NOTE | 2019-04-07 12:55 | Post Anesthesia Evaluation ---
- Post Anesthesia Evaluation Patient Participated: Yes Airway Patent: Yes Stable Respiratory Function: Yes Nausea/Vomiting: No Temp > 96.8F: Yes Pain Manageable: Yes Adequeate Hydration: Yes Anesthesia Complications: No Block Receding Appropriately: Yes Patient on Ventilator: No
[2019-04-07] MEDS ORDERED: KETOROLAC 30 MG/1 ML INJ IV SCH (13:00)
[2019-04-07] MEDS ORDERED: D5W/LACTATED RINGERS 1,000 ML IV SCH (13:00)
[2019-04-07] MEDS ORDERED: ceFAZolin/NS 1 GM/50 ML 1 GM/50 ML BAG IV SCH (13:00)
--- NOTE | 2019-04-07 13:11 | Post Operative Note ---
Pre-op diagnosis: 36weeks, IUGR, prev C/S GHTN,severe, smoker Post-op diagnosis: same Procedure: LTCS Anesthesia: spinal Surgeon: SAMUEL ALLEN Estimated blood loss: other (600) Pathology: list (placenta) Specimen disposition: to lab Condition: stable Disposition: PACU
[2019-04-07 13:22] LABS: Hepatitis C Virus Antibody Non-Reactive (NonReactive)
[2019-04-07] MEDS ORDERED: MAGNESIUM SULFATE 40GM/1000ML 40 GM/1,000 ML BAG IV ONE (14:36)
[2019-04-07] MEDS: OXYTOCIN 20 UNIT/1000ML DRIP 20 UNITS/1,000 ML BAG IV SCH ×2 (14:52→20:50)
[2019-04-07] MEDS: KETOROLAC 30 MG/1 ML INJ IV SCH ×2 (15:28→21:24)
--- NOTE | 2019-04-07 15:32 | Operative Report ---
PREOPERATIVE DIAGNOSES: Intrauterine at 36 weeks, limited care, active labor, previous , desires repeat , intrauterine growth restriction, gestational hypertension, severe features, tobacco use. POSTOPERATIVE DIAGNOSES: Intrauterine at 36 weeks, limited care, active labor, previous , desires repeat , intrauterine growth restriction, gestational hypertension, severe features, tobacco use. Pelvic adhesions. PROCEDURE: Low transverse with lysis of adhesions and repair of inferior extension. SURGEON: Dr. García. SCHEDULE MAKER: Trinidad Thompson CST. ANESTHESIA: Spinal. COMPLICATIONS: None. ESTIMATED BLOOD LOSS: 600 mL. ANESTHESIOLOGIST: Dr. Leung. FINDINGS: Liveborn male infant, weight 4 pounds 7 ounces, Apgars 8 at 1 minute and 9 at 5 minutes. Grossly normal uterus, tubes and ovaries. DESCRIPTION OF PROCEDURE: After risks, benefits, complications, consequence and alternatives to procedure discussed with the patient who voiced and desired to proceed, she was taken to the OR where epidural anesthesia was placed. She was placed in left lateral tilt position and prepped and draped in the usual sterile fashion. Once the timeout was performed and appropriate level of anesthesia was noted, a Pfannenstiel incision was made and extended to the fascia, which was incised and extended to the lateral direction. The overlying fascia was sharply dissected away from the underlying rectus muscle superior inferior direction. Midline was entered bluntly. The vesicouterine fold was incised with blunt dissection. Bladder flap was created, then a transverse incision was made in the lower uterine segment and extended superolateral direction with finger fractionation. Clear fluid was noted. was delivered from the cephalic position. Mouth and nose were bulb suctioned. Spontaneous cry and good tone was noted. cord was doubly clamped and cut. Infant was given to the resuscitation team present. The placenta was delivered and the uterus was exteriorized and cleaned of any further products of conception and placental tissue. A vertical midline extension of approximately 5 cm was noted; however, no bladder involvement was noted. This area was reapproximated using 0 Vicryl in a running interlocking stitch. Once it was secured and no defects were noted, the transverse uterine incision was reapproximated using 0 Vicryl in a running interlocking stitch. Once hemostasis was noted, the uterus was allowed back in the pelvic cavity. The pelvis was irrigated with warm normal saline. Stephanie was placed for hemostasis. The Ke was removed. Hemostasis was noted and the rectus muscles were reapproximated in a simple stitch of 0 Vicryl interrupted x 3. Once hemostasis was noted, the fascia was reapproximated using 0 Vicryl in a simple running stitch. Once hemostasis was noted, the skin was reapproximated using 4-0 Vicryl on a Neri needle in a subcuticular manner. Hemostasis was noted. The patient tolerated the procedures well. COUNTS: Correct x 3. The patient was taken to recovery room in stable condition. JOB# [id number] MARVA/CECE
[2019-04-07] MEDS ORDERED: ACETAMINOPHEN 325 MG TAB PO SCH (16:30)
[2019-04-07] MEDS ORDERED: ACETAMINOPHEN 325 MG TAB PO PRN (16:30)
[2019-04-07] MEDS: HYDROmorphone 1 MG/1 ML INJ IV PRN ×2 (16:57→20:47)
[2019-04-07 23:15] LABS: Hemoglobin 11.2 gm/dl (10.1-14.3)
[2019-04-08] MEDS: KETOROLAC 30 MG/1 ML INJ IV SCH (05:13)
[2019-04-08] MEDS ORDERED: ACETAMINOPHEN 325 MG TAB PO PRN ×2 (08:15→11:30)
--- NOTE | 2019-04-08 08:45 | Progress Note ---
Assessment and Plan - Patient Problems (1) delivery delivered Current Visit: Yes Status: Acute Plan to address problem: Walk in patient. No records available Continue post c/s pathway (2) Gestational [-induced] hypertension without significant proteinuria, complicating childbirth Current Visit: Yes Status: Acute Plan to address problem: Severe features. BP's still slightly elevated in sitting position, will start Labetalol 200mg bid Allow to floor this am. (3) Maternal care due to uterine scar from other previous surgery Current Visit: Yes Status: Chronic (4) Smoker Current Visit: Yes Status: Chronic Subjective - Subjective Date of service: 04/08/19 Principal diagnosis: POD#1 s/p RC/S Patient reports: appetite normal Objective - Vital Signs Latest vital signs: Vital Signs Temp Pulse Resp BP BP Pulse Ox 04/08/19 08:08 84 134/101 04/08/19 08:01 88 148/115 04/08/19 07:58 97.9 F 80 16 133/90 04/08/19 07:30 80 133/90 04/08/19 07:00 83 129/89 04/08/19 06:03 73 123/81 04/08/19 04:00 79 20 123/80 04/08/19 03:00 88 16 123/81 04/08/19 02:00 98 F 75 18 142/97 04/08/19 01:00 90 20 136/88 04/08/19 00:00 75 16 136/75 04/07/19 23:00 71 16 122/74 04/07/19 22:00 79 18 119/66 04/07/19 21:00 84 18 148/96 04/07/19 20:49 83 148/95 04/07/19 19:49 98.5 F 82 18 156/87 04/07/19 19:19 86 140/90 04/07/19 18:49 83 139/91 04/07/19 18:19 84 143/81 04/07/19 17:49 78 140/100 04/07/19 17:19 86 153/118 04/07/19 16:19 75 114/77 04/07/19 15:49 75 134/86 04/07/19 15:20 98.2 F 04/07/19 15:19 84 138/74 04/07/19 14:00 74 17 99/65 97 04/07/19 13:30 75 17 109/65 97 04/07/19 13:15 76 14 103/64 98 04/07/19 13:00 81 16 100/62 96 04/07/19 12:55 80 16 92/54 100 04/07/19 12:50 77 15 110/60 99 04/07/19 12:45 97.6 F 137 H 19 100/60 99 04/07/19 10:42 100 H 122/74 04/07/19 09:26 107 H 136/73 04/07/19 08:47 103 H 162/98 Intake and Output 04/07/19 04/08/19 04/08/19 22:59 06:59 14:59 Intake Total 1530 600 Output Total 1900 3000 300 Balance -370 -2400 -300 Intake: IV 1050 ANCEF/NS 1 GM/50 ML 1 gm 50 In 50 ml @ 100 mls/hr IV Q8H [facility] Rx#:[id number] PITOCin/NS 20 UNIT/1000ML 1000 DRIP 20 units In 1,000 ml @ 250 mls/hr IV DIRECT [facility] Rx#:[id number] Oral 480 600 Output: Urine 1900 3000 300 Indwelling Catheter 1900 3000 300 Other: Total, Intake Amount 480 240 Total, Output Amount 400 400 300 Estimated Blood Loss 600 - Exam Breasts: Present: deferred. Absent: engorged Lungs: Present: Clear to auscultation, Normal air movement Abdomen: Present: normal appearance, soft, normal bowel sounds. Absent: distention, tenderness Uterus: Present: fundal height below umbilicus. Absent: tenderness Extremities: Present: normal. Absent: tenderness, edema Deep Tendon Reflex Grade: Normal +2 Incision: Present: dressed - Labs Labs: Abnormal lab results 04/07/19 04/07/19 04/08/19 Range/Units 19:48 22:56 05:35 Magnesium 4.50 H 5.00 H 5.70 H (1.7-2.3) mg/dL
[2019-04-08] MEDS ORDERED: MORPHINE 4 MG/1 ML INJ IV PRN (11:30)
[2019-04-08] MEDS ORDERED: OXYTOCIN 20 UNIT/1000ML DRIP 20 UNITS/1,000 ML BAG IV SCH (11:30)
[2019-04-08] MEDS ORDERED: WITCH HAZEL/ GLYCERIN PAD TP PRN (11:30)
[2019-04-08] MEDS ORDERED: NALOXONE 0.4 MG/1 ML INJ IV PRN (11:30)
[2019-04-08] MEDS ORDERED: LANOLIN/ZINC/DIMETHICONE (LANSINOH) 7 GM TP PRN (11:30)
[2019-04-08] MEDS ORDERED: ONDANSETRON 8 MG ODT TAB PO PRN (11:30)
[2019-04-08] MEDS ORDERED: MAGNESIUM HYDROXIDE (MOM) ORAL LIQD UDC PO PRN (11:30)
[2019-04-08] MEDS ORDERED: IBUPROFEN 800 MG TAB PO PRN (12:37)
[2019-04-08] MEDS ORDERED: oxyCODONE /ACETAMINOPHEN 5-325MG TAB PO PRN (12:37)
[2019-04-08] MEDS ORDERED: TETANUS,DIPH,PERTUSS(ACELL) VACCINE 0.5 ML SYRINGE IM ONE (12:38)
[2019-04-08] MEDS: MORPHINE 2 MG/1 ML INJ IV PRN ×2 (13:53→20:15)
[2019-04-08] MEDS: ceFAZolin/NS 1 GM/50 ML 1 GM/50 ML BAG IV SCH ×2 (15:21→23:13)
[2019-04-08 15:58] LABS: Hematocrit 34.5 % (30.3-42.9); Hemoglobin 11.1 gm/dl (10.1-14.3)
[2019-04-08] MEDS: oxyCODONE /ACETAMINOPHEN 5-325MG TAB PO PRN ×2 (16:00→23:25)
[2019-04-08] MEDS: IBUPROFEN 800 MG TAB PO PRN (22:29)
[2019-04-09] MEDS ORDERED: ACETAMINOPHEN 325 MG TAB PO PRN
[2019-04-09] MEDS: SIMETHICONE 80 MG CHEW TAB PO PRN ×2 (06:20→14:36)
[2019-04-09] MEDS: oxyCODONE /ACETAMINOPHEN 5-325MG TAB PO PRN (08:43)
[2019-04-09] MEDS: IBUPROFEN 800 MG TAB PO PRN (10:58)
[2019-04-09] MEDS ORDERED: PROMETHAZINE 25 MG RECT SUPP PR PRN (14:43)
[2019-04-09] MEDS ORDERED: ONDANSETRON 4 MG/2 ML INJ IV PRN (14:43)
--- NOTE | 2019-04-09 14:43 | Progress Note ---
Assessment and Plan POD#2, will make NPO and give phenergan suppository for n/v - Patient Problems (1) delivery delivered Current Visit: Yes Status: Acute (2) Gestational [-induced] hypertension without significant proteinuria, complicating childbirth Current Visit: Yes Status: Acute (3) Maternal care due to uterine scar from other previous surgery Current Visit: Yes Status: Chronic (4) Smoker Current Visit: Yes Status: Chronic Subjective - Subjective Date of service: 04/09/19 Principal diagnosis: POD#2 s/p RC/S Patient reports: voiding normally, nauseated, other (vomited while I was in the room), no appetite normal, no flatus, no bowel movement Objective - Vital Signs Latest vital signs: Vital Signs Temp Pulse Resp BP BP Pulse Ox 04/09/19 08:40 98 F 79 20 126/88 04/09/19 06:06 98.3 F 79 20 118/87 100 04/09/19 00:25 18 04/08/19 23:29 18 04/08/19 23:25 18 04/08/19 23:11 81 124/87 04/08/19 22:29 18 04/08/19 21:34 98 F 89 20 122/91 04/08/19 20:15 18 04/08/19 16:11 98.0 F 18 131/96 Intake and Output 04/08/19 04/09/19 04/09/19 22:59 06:59 14:59 Intake Total 50 360 860 Balance 50 360 860 Intake: IV 50 ANCEF/NS 1 GM/50 ML 1 gm 50 In 50 ml @ 100 mls/hr IV Q8H [facility] Rx#:[id number] Oral 860 Intake, Free Water 360 Other: Total, Intake Amount 420 # Voids Void 2 1 - Exam Breasts: Present: normal Cardiovascular: Present: Regular rate Lungs: Present: Clear to auscultation Abdomen: Present: normal bowel sounds. Absent: tenderness Uterus: Present: fundal height below umbilicus. Absent: tenderness Extremities: Present: normal. Absent: tenderness, edema Incision: Present: intact (no s/s infection). Absent: erythematous, skin
[2019-04-09] MEDS ORDERED: D5W/LACTATED RINGERS 1,000 ML IV SCH (15:00)
[2019-04-09] MEDS: KETOROLAC 30 MG/1 ML INJ IV PRN ×2 (17:09→23:11)
[2019-04-09] MEDS: D5W/LACTATED RINGERS 1,000 ML IV SCH (23:11)
--- NOTE | 2019-04-10 08:08 | Discharge Summary ---
Providers - Providers Date of Admission: 04/07/19 08:38 Date of discharge: 04/10/19 (Pt desires to go home) Attending physician: SAMUEL ALLEN 04/07/19 12:37 Consult to [employer] Automatic Stoker [CONS] Routine Reason For Exam: 04/07/19 12:43 Consult to Case Management [CONS] Routine Services Needed at Discharge: Vice Investigator Notified:: KATARZYNA Phone number called:: [phone] Was contact made?: Yes If yes, spoke with:: Brandy Time called:: 10:00 04/08/19 11:30 Consult to Case Management [CONS] Routine Services Needed at Discharge: Vice Investigator Notified:: KATARZYNA Phone number called:: [phone] Was contact made?: Yes If yes, spoke with:: Brandy Time called:: 10:00 Consult to Fire[employer] Automatic Stoker [CONS] Routine Reason For Exam: Primary care physician: [facility] Hospitalization Reason for admission: active labor, section Delivery: Episiotomy: none Laceration: none Incision: normal, dry, intact Other procedures: none complications: none Discharge diagnosis: IUP at term delivered [place] baby: male (Baby in NICU) Hospital course: S: Pt doing well, states had BM, is passing flatus, and is ready to go home. Pain is well controlled, no nausea and vomiting and states minimal bleeding. O: VSS, bowel sounds active and present. Incision, dry, intact with no s/sx of infection. Using breast pump. A: 28 y.o. s/p repeat with history of gHTN P: D/C home with instructions To follow up with primary care OB in 1 week for incision check and BP check Will follow up with primary care OB for circumcision when discharged home Condition at discharge: Good Disposition: DC-01 TO HOME OR SELFCARE Plan - Discharge Medications Prescriptions: Lidocain2.5%/Prilocai2.5% [Emla] 5 gm TP ONCE #1 tube labetaloL [Labetalol 200mg TAB] 200 mg PO BID #60 tablet Ibuprofen [Motrin 800 MG tab] 800 mg PO TID PRN #30 tablet PRN Reason: Pain oxyCODONE /ACETAMINOPHEN [Percocet 5/325 mg] 1 - 2 tab PO Q4HR PRN #20 tablet PRN Reason: Pain oxyCODONE /ACETAMINOPHEN [Percocet 5/325 mg] 1 - 2 tab PO Q6HR PRN #20 tablet PRN Reason: Pain - Provider Discharge Summary Activity: routine, no sex for 6 weeks, no heavy lifting 4 weeks, no strenuous exercise Diet: routine Instructions: routine Additional instructions: [] Smoking cessation referral if applicable(refer to patient education folder for contact #) [] Refer to [facility] Booklet Call your doctor immediately for: * Fever > 100.5 * Heavy vaginal bleeding ( >1 pad per hour) * Severe persistent headache * Shortness of breath * Reddened, hot, painful area to leg or breast * Drainage or odor from incision. * Keep incision clean and dry at all times and follow doctor's instructions regarding bathing/showering - Follow up plan Follow up: PRIMARY CARE,MD [Primary Care Provider] - 7 Days ( ) DONALD HAMLIN CNM [Advanced Practice Nurse] - 7 Days (Congratulations! Follw up with your primary care OB in 1 week for incision check and BP check in 1 week. Schedule an appointment for circumcision in 1 week, after infant discharged home with primary care OB. If you need follow up care give [facility] a call [facility] [address] [phone] )
[2019-04-10] MEDS: D5W/LACTATED RINGERS 1,000 ML IV SCH (08:21)
[2019-04-10] MEDS: IBUPROFEN 800 MG TAB PO PRN (10:57)
[2019-04-10 12:19] VITALS: BP 111/76
== END 2019-04-10 16:30 | disposition home or self-care (01) | DRG 765 ==
LOC: TRG 06:09 → LD 08:38 → OB 04-08 11:02
PROVIDERS: ADMIT Obstetrics & Gynecology; ATTEND Obstetrics & Gynecology
PROC: 10D00Z1 Extraction of Products of Conception, Low, Open Approach (ICD-10-PCS; principal; 2019-04-07)
PROC: 3E0234Z Introduction of Serum, Toxoid and Vaccine into Muscle, Percutaneous Approach (ICD-10-PCS; 2019-04-08)
DX: O34.211 Maternal care for low transverse scar from previous cesarean delivery (principal); O36.5930 Maternal care for other known or suspected poor fetal growth, third trimester, not applicable or unspecified; Z37.0 Single live birth; Z3A.36 36 weeks gestation of pregnancy; Z23 Encounter for immunization; O13.4 Gestational [pregnancy-induced] hypertension without significant proteinuria, complicating childbirth; F17.210 Nicotine dependence, cigarettes, uncomplicated; O99.334 Smoking (tobacco) complicating childbirth; O99.214 Obesity complicating childbirth
CPT/HCPCS: 36415; 76816; 80307; 81001; 82565; 83615; 83735; 84450; 84460; 84550; 85014; 85018; 85027; 86592; 86706; 86762; 86803; 86850; 86900; 86901; 87806; 88307; 90686; G0378; A6250; J0690; J0702; J1170; J1885; J2270; J2370; J2405; J2590; J2765; J3105; J3475; J3490; J7120; J7121; Q0162

== ENCOUNTER 2021-12-02 19:53 | Emergency (ER) | payer SELFPAY | END 2021-12-02 21:00 | disposition left against medical advice (07) | LOC: ED 19:53 | DX: T16.9XXA Foreign body in ear, unspecified ear, initial encounter (principal); Z53.21 Procedure and treatment not carried out due to patient leaving prior to being seen by health care provider; X58.XXXA Exposure to other specified factors, initial encounter; Y93.89 Activity, other specified; Y92.89 Other specified places as the place of occurrence of the external cause; Y99.8 Other external cause status ==

== ENCOUNTER 2021-12-03 18:11 | Emergency (ER) | payer SELFPAY ==
[2021-12-03] MEDS ORDERED: HYDROcodone/ACETAMINOPHEN 5-325 MG TAB PO ONE (23:15)
[2021-12-03] MEDS ORDERED: ONDANSETRON 4 MG ODT TAB PO ONE (23:15)
[2021-12-03] MEDS ORDERED: IBUPROFEN 600 MG TAB PO ONE (23:15)
--- NOTE | 2021-12-04 00:39 | Emergency Department Report ---
ED General Adult HPI - General Chief complaint: Earache Stated complaint: EARRING BACK INSIDE EAR CANAL Source: patient Mode of arrival: Ambulatory Limitations: No Limitations - History of Present Illness Initial comments: Patient is a 31-year-old female with no past medical history presents to the ED with complaint of acute onset persistent right ear pain for the last 1 week. Patient states that she suspects that a piece of her hearing may have entered into her right ear. Patient also admits to using Q-tips regularly for cleaning her ear canal. Patient states that in the last 3 days, the pain has been constant and persistent such that she is unable to sleep. Patient denies dizziness, syncope, chest pain or shortness of breath, nausea and vomiting, hearing loss, sore throat, headache, fever, chills, cough, sore throat. MD Complaint: RIGHT EAR PAIN, SUSPECTED FOREIGN BODY -: Gradual, week(s) (1) Location: face (Right ear) Radiation: non-radiation Severity scale (0 -10): 10 Quality: aching, sharp Consistency: constant Improves with: none Worsens with: none Associated Symptoms: denies other symptoms. denies: confusion, chest pain, cough, diaphoresis, fever/chills, headaches, loss of appetite, malaise, nausea/vomiting, rash, seizure, shortness of breath, syncope, weakness Treatments Prior to Arrival: none - Related Data Previous Rx's Medication Instructions Recorded Last Taken Type methylPREDNISolone [Medrol] 4 mg PO DAILY #1 tab.ds.pk 11/21/16 Unknown Rx Ciprofloxacin 0.3% (Nf) 2 drops OD BID 5 Days drops 04/04/17 Unknown Rx [Ciprofloxacin OPTH] Amoxicillin/K Clav Tab [Augmentin 1 tab PO Q12HR #20 tab 12/29/17 Unknown Rx 875 mg] Nystas/Diphen/Xyl Visc/Mylanta 15 ml MM Q6H PRN 5 Days ml 12/29/17 Unknown Rx [Magic Mouthwash] Amoxicillin [Amoxicillin TAB] 875 mg PO BID #20 tablet 06/12/18 Unknown Rx Ibuprofen [Motrin 600 MG tab] 600 mg PO Q8H PRN #30 tablet 06/12/18 Unknown Rx predniSONE 20 mg PO BID #10 tab 06/12/18 Unknown Rx Ibuprofen [Motrin 800 MG tab] 800 mg PO TID PRN #30 tablet 04/08/19 Unknown Rx Lidocain2.5%/Prilocai2.5% [Emla] 5 gm TP ONCE #1 tube 04/08/19 Unknown Rx oxyCODONE /ACETAMINOPHEN [Percocet 1 - 2 tab PO Q4HR PRN #20 tablet 04/08/19 Unknown Rx 5/325 mg] oxyCODONE /ACETAMINOPHEN [Percocet 1 - 2 tab PO Q6HR PRN #20 tablet 04/08/19 Unknown Rx 5/325 mg] labetaloL [Labetalol 200mg TAB] 200 mg PO BID #60 tablet 04/10/19 Unknown Rx Amoxicillin/K Clav Tab [Augmentin 1 tab PO Q12HR #20 tab 12/04/21 Unknown Rx 875 mg] Ibuprofen [Motrin] 800 mg PO Q8HR PRN #30 tablet 12/04/21 Unknown Rx Ofloxacin 0.3% [Floxin 0.3% Otic] 3 drop OT BID #5 ml 12/04/21 Unknown Rx Allergies Allergy/AdvReac Type Severity Reaction Status Date / Time No Known Allergies Allergy Verified 12/03/21 18:49 ED Review of Systems ROS: Stated complaint: EARRING BACK INSIDE EAR CANAL Other details as noted in HPI Constitutional: denies: chills, fever Eyes: denies: eye pain, eye discharge, vision change ENT: ear pain (right ear). denies: throat pain, dental pain, hearing loss, congestion Respiratory: denies: cough, shortness of breath, wheezing Cardiovascular: denies: chest pain, palpitations Endocrine: no symptoms reported Gastrointestinal: denies: abdominal pain, nausea, diarrhea Genitourinary: denies: urgency, dysuria, discharge Musculoskeletal: denies: back pain, joint swelling, arthralgia Skin: denies: rash, lesions Neurological: denies: headache, weakness, paresthesias Psychiatric: denies: anxiety, depression Hematological/Lymphatic: denies: easy bleeding, easy bruising ED Past Medical Hx - Past Medical History Hx Hypertension: Yes (gestational HTN) Hx Heart Attack/AMI: No Hx Congestive Heart Failure: No Hx Diabetes: No Hx Deep Vein Thrombosis: No Hx Liver Disease: No Hx Renal Disease: No Hx Sickle Cell Disease: No Hx Seizures: No Hx Asthma: No Hx COPD: No Hx HIV: No - Surgical History Hx Pacemaker: No Hx Internal Defibrillator: No Additional Surgical History: c section 2006 - Social History Smoking Status: Light Tobacco Smoker - Medications Home Medications: Home Medications Medication Instructions Recorded Confirmed Last Taken Type methylPREDNISolone [Medrol] 4 mg PO DAILY #1 tab.ds.pk 11/21/16 04/09/19 Unknown Rx Ciprofloxacin 0.3% (Nf) 2 drops OD BID 5 Days drops 04/04/17 04/09/19 Unknown Rx [Ciprofloxacin OPTH] Amoxicillin/K Clav Tab [Augmentin 1 tab PO Q12HR #20 tab 12/29/17 04/09/19 Unknown Rx 875 mg] Nystas/Diphen/Xyl Visc/Mylanta 15 ml MM Q6H PRN 5 Days ml 12/29/17 04/09/19 Unknown Rx [Magic Mouthwash] Amoxicillin [Amoxicillin TAB] 875 mg PO BID #20 tablet 06/12/18 04/09/19 Unknown Rx Ibuprofen [Motrin 600 MG tab] 600 mg PO Q8H PRN #30 tablet 06/12/18 04/09/19 Unknown Rx predniSONE 20 mg PO BID #10 tab 06/12/18 04/09/19 Unknown Rx Ibuprofen [Motrin 800 MG tab] 800 mg PO TID PRN #30 tablet 04/08/19 Unknown Rx Lidocain2.5%/Prilocai2.5% [Emla] 5 gm TP ONCE #1 tube 04/08/19 Unknown Rx oxyCODONE /ACETAMINOPHEN [Percocet 1 - 2 tab PO Q4HR PRN #20 tablet 04/08/19 Unknown Rx 5/325 mg] oxyCODONE /ACETAMINOPHEN [Percocet 1 - 2 tab PO Q6HR PRN #20 tablet 04/08/19 Unknown Rx 5/325 mg] labetaloL [Labetalol 200mg TAB] 200 mg PO BID #60 tablet 04/10/19 Unknown Rx Amoxicillin/K Clav Tab [Augmentin 1 tab PO Q12HR #20 tab 12/04/21 Unknown Rx 875 mg] Ibuprofen [Motrin] 800 mg PO Q8HR PRN #30 tablet 12/04/21 Unknown Rx Ofloxacin 0.3% [Floxin 0.3% Otic] 3 drop OT BID #5 ml 12/04/21 Unknown Rx ED Physical Exam - General Limitations: No Limitations General appearance: alert, in no apparent distress - Head Head exam: Present: atraumatic, normocephalic, normal inspection - Eye Eye exam: Present: normal appearance, PERRL, EOMI Pupils: Present: normal accommodation - ENT ENT exam: Present: normal exam, normal orophraynx, mucous membranes moist, TM's normal bilaterally, normal external ear exam - Neck Neck exam: Present: normal inspection, full ROM - Respiratory Respiratory exam: Present: normal lung sounds bilaterally. Absent: respiratory distress, wheezes, rales, rhonchi, chest wall tenderness, accessory muscle use, decreased breath sounds, prolonged expiratory - Cardiovascular Cardiovascular Exam: Present: normal rhythm, tachycardia, normal heart sounds. Absent: systolic murmur, diastolic murmur, rubs, gallop - GI/Abdominal GI/Abdominal exam: Present: soft, normal bowel sounds. Absent: tenderness, guarding, hyperactive bowel sounds, hypoactive bowel sounds, organomegaly - Extremities Exam Extremities exam: Present: normal inspection, full ROM, normal capillary refill. Absent: tenderness - Back Exam Back exam: Present: normal inspection, full ROM. Absent: tenderness, CVA tenderness (R), CVA tenderness (L), muscle spasm, paraspinal tenderness, vertebral tenderness - Neurological Exam Neurological exam: Present: alert, oriented X3, CN II-XII intact, normal gait, reflexes normal - Psychiatric Psychiatric exam: Present: normal affect, normal mood, anxious - Skin Skin exam: Present: warm, dry, intact, normal color. Absent: rash ED Course Vital Signs 12/03/21 12/03/21 18:46 23:32 Temperature 98.4 F Pulse Rate 106 H Respiratory 18 16 Rate Blood Pressure 139/96 [Left] O2 Sat by Pulse 100 Oximetry ED Medical Decision Making - Medical Decision Making This is a 31-year-old female with no past medical history presents to the ED with complaint of acute onset persistent right ear pain for the last 1 week. Patient states that she suspects that a piece of her hearing may have entered into her right ear. Patient also admits to using Q-tips regularly for cleaning her ear canal. Patient states that in the last 3 days, the pain has been constant and persistent such that she is unable to sleep. In the ED, patient is alert and oriented x3 and is not in any distress. Patient was treated for pain in the ED and the physical exam was positive for mild erythematous tympanic membrane with a suspected rupture but no obvious foreign body in the right ear canal. Patient was discharged home on pain medications and antibiotics and given a referral to the ENT physician Dr. Grant for follow-up and further evaluation. Patient was advised to follow-up with the ENT physician in 5 to 7 days for reevaluation or return to the ED immediately if symptoms get worse. - Differential Diagnosis Otitis media; ruptured eardrum; foreign body of ear Critical care attestation.: If time is entered above; I have spent that time in minutes in the direct care of this critically ill patient, excluding procedure time. ED Disposition Clinical Impression: Acute otitis media with effusion of right ear Tympanic membrane perforation Qualifiers: Laterality: right Qualified Code(s): H72.91 - Unspecified perforation of tympanic membrane, right ear Disposition: HOME / SELF CARE / HOMELESS Is pt being admited?: No Does the pt Need Aspirin: No Condition: Stable Instructions: Ear Drops, Adult, [id number], Otitis Media, Adult, [id number], Eardrum Rupture, [id number], Ear Foreign Body, [id number] Additional Instructions: Take medication with food, drink plenty of fluids, follow-up with your primary care physician in 7 to 10 days for reevaluation. Consider following up with the ear nose and throat physician in 5 to 7 days for further evaluation. Return to the ED immediately if symptoms get worse. Prescriptions: Amoxicillin/K Clav Tab [Augmentin 875 mg] 1 tab PO Q12HR #20 tab Ofloxacin 0.3% [Floxin 0.3% Otic] 3 drop OT BID #5 ml Ibuprofen [Motrin] 800 mg PO Q8HR PRN #30 tablet PRN Reason: Pain , Severe (7-10) Referrals: PAMELA SORTO MD [Staff Physician] - 3-5 Days Forms: Work/School Release Form(ED) Time of Disposition: 00:37 Print Language: POLISH
[2021-12-04 01:08] VITALS: BP 119/88
== END 2021-12-04 01:28 | disposition home or self-care (01) ==
LOC: ED 18:11
DX: H65.191 Other acute nonsuppurative otitis media, right ear (principal); H72.91 Unspecified perforation of tympanic membrane, right ear; I10 Essential (primary) hypertension; Z79.899 Other long term (current) drug therapy
CPT/HCPCS: 99282; J3490; Q0162